=== PATIENT | male | born 1950 | race Caucasian/White ===

== ENCOUNTER 2016-04-11 08:51 | Emergency (ER) | payer BC, OTHER ==
[~2016-04-11] VITALS: Ht 162.6 cm; Wt 113.2 kg
[~2016-04-11 08:51] MED LIST: OXYC1TAB3 PO
[2016-04-11 08:59] VITALS: TEMP 36.7; Ht 162.6 cm; Wt 113.2 kg
--- NOTE | 2016-04-11 10:08 | DIAGNOSTIC IMAGING REPORT ---
CT OF THE HEAD WITHOUT CONTRAST CLINICAL HISTORY: Fall. COMPARISON STUDY: No previous studies for comparison. CT DOSE: 823.94 mGycm TECHNIQUE: Helical axial images of the head were obtained without IV contrast. Automated exposure control was utilized for the study. FINDINGS: No acute intracranial hemorrhage, midline shift or mass effect is present. Ventricular system is unremarkable for age. The basilar cisterns are patent. There are no extra-axial collections. Schaefer-white differentiation is maintained. There is a left posterior scalp contusion. No calvarial fracture is present. IMPRESSION: 1. No acute intracranial findings. 2. Left posterior scalp contusion. No calvarial fracture. Electronically signed by: Daniel Gramajo M.D. 04/11/2016 10:07 AM
--- NOTE | 2016-04-11 10:11 | DIAGNOSTIC IMAGING REPORT ---
CERVICAL SPINE CT CT DOSE: 446.00 mGycm HISTORY: Neck pain. Fall. EVALUATE FOR TRAUMA/INJURY TECHNIQUE: Multiaxial CT images of the cervical spine were performed and reformatted in the sagittal and coronal plane without the use of contrast. COMPARISON: None. FINDINGS: No fractures. No subluxation. Prevertebral soft tissues and the C1-C2 interval are intact. No pneumothorax. Focal indentation along the inferior endplate of C6 favors a Schmorl's node. Moderate disc space narrowing at C5-C6 and C6-C7. Mild to moderate facet degenerative changes seen throughout the cervical spine. IMPRESSION: No fractures within the cervical spine. Electronically signed by: Kishan Saini M.D. 04/11/2016 10:09 AM
--- NOTE | 2016-04-11 10:56 | DIAGNOSTIC IMAGING REPORT ---
LEFT ELBOW MIN 3 VIEWS ROUTINE CLINICAL HISTORY: Left elbow pain status post trauma COMPARISON: None. DISCUSSION: The fat pads are not displaced. No fractures or dislocations are visualized. There is a small radiopaque foreign body within the volar soft tissues. IMPRESSION: No fractures or dislocations identified. Small metallic foreign body within the volar soft tissues Electronically signed by: Jamaal Joseph M.D. 04/11/2016 10:54 AM
[2016-04-11 11:16] VITALS: BP 143/84; PULSE 69; O2SAT 98
--- NOTE | 2016-04-11 11:17 | EMERGENCY ROOM VISIT NOTE ---
History Report prepared by Christian: Lucero Collins Under the Supervision of: Dr. Thomas Lott D.O. 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 The patient states that he slipped on the ice outside of his house this morning. He hit the back of his head but did not experience LOC. Per the patient's , he kept asking repetitive questions after he fell. The patient is also experiencing neck pain that radiates into his jaw and pain in the back of his head. He denies hitting his jaw when he fell. The patient also hit his left elbow when he fell. He denies back pain along with any new tingling or numbness. He states that he has carpal tunnel in his hands. 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 A total of 10 systems reviewed and were otherwise negative. Past Medical & Surgical Medical Problems: (1) Carpal tunnel syndrome, bilateral Family History Cancer Diabetes mellitus Social History Smoking Status: Never Smoker Smokeless Tobacco Use: No Alcohol Use: none Drug Use: none Marital Status: Housing Status: lives with family Occupation Status: employed Current/Historical Medications No Active Prescriptions or Reported Meds Allergies Coded Allergies: No Known Allergies (Unverified , 04/11/16) Physical Exam Vital Signs Date Time Temp Pulse Resp B/P Pulse Ox O2 Delivery O2 Flow Rate FiO2 04/11/16 11:16 69 20 143/84 98 Room Air 04/11/16 08:59 36.7 72 20 183/98 97 Room Air Physical Exam CONSTITUTIONAL/VITAL SIGNS: Reviewed / noted above. GENERAL: Non-toxic in appearance. INTEGUMENTARY: Warm, dry, and Bond. HEAD: Normocephalic. Hematoma and abrasions on posterior occipital region. EYES: without scleral icterus or trauma. ENT/OROPHARYNX: clear and moist. LYMPHADENOPATHY/NECK: Is supple without lymphadenopathy or meningismus. Moderately tender to palpation of upper cervical midline. RESPIRATORY: Lungs clear and equal. CARDIOVASCULAR: Regular rate and rhythm. GI/ABDOMEN: Soft and nontender. No organomegaly or pulsatile mass. No rebound or guarding. Normal bowel sounds. EXTREMITIES: Warm and well perfused. BACK: No CVA tenderness. NEUROLOGICAL: Intact without focal deficits. GCS: 15 PSYCHIATRIC: normal affect. MUSCULOSKELETAL: Normally developed with good muscle tone. Medical Decision & Procedures ER Provider Diagnostic Interpretation: X ray results and stated below per my interpretation and radiologist interpretation. Other radiology results and stated below per my review and radiologist interpretation: LEFT ELBOW MIN 3 VIEWS ROUTINE CLINICAL HISTORY: Left elbow pain status post trauma COMPARISON: None. DISCUSSION: The fat pads are not displaced. No fractures or dislocations are visualized. There is a small radiopaque foreign body within the volar soft tissues. IMPRESSION: No fractures or dislocations identified. Small metallic foreign body within the volar soft tissue. Electronically signed by: Jamaal Joseph M.D. 04/11/2016 10:[address] OF THE HEAD WITHOUT CONTRAST CLINICAL HISTORY: Fall. COMPARISON STUDY: No previous studies for comparison. CT DOSE: 823.94 mGycm TECHNIQUE: Helical axial images of the head were obtained without IV contrast. Automated exposure control was utilized for the study. FINDINGS: No acute intracranial hemorrhage, midline shift or mass effect is present. Ventricular system is unremarkable for age. The basilar cisterns are patent. There are no extra-axial collections. Schaefer-white differentiation is maintained. There is a left posterior scalp contusion. No calvarial fracture is present. IMPRESSION: 1. No acute intracranial findings. 2. Left posterior scalp contusion. No calvarial fracture. Electronically signed by: Daniel Gramajo M.D. 04/11/2016 10:[address] DOSE: 446.00 mGycm HISTORY: Neck pain. Fall. EVALUATE FOR TRAUMA/INJURY TECHNIQUE: Multiaxial CT images of the cervical spine were performed and reformatted in the sagittal and coronal plane without the use of contrast. COMPARISON: None. FINDINGS: No fractures. No subluxation. Prevertebral soft tissues and the C1-C2 interval are intact. No pneumothorax. Focal indentation along the inferior endplate of C6 favors a Schmorl's node. Moderate disc space narrowing at C5-C6 and C6-C7. Mild to moderate facet degenerative changes seen throughout the cervical spine. IMPRESSION: No fractures within the cervical spine. Electronically signed by: Kishan Saini M.D. 04/11/2016 10:09 AM ED Course 0934: Previous medical records were reviewed. The patient was evaluated in room C9. A complete history and physical examination was performed. 1117: On reevaluation, the patient is doing well. I discussed the results and findings with the patient. He verbalized agreement of the treatment plan. He was discharged home. Medical Decision Differential includes close head injury, intracranial bleed, facial trauma, cervical spine trauma, chest and thoracic trauma, abdominal and intra-abdominal trauma, spine neurologic trauma, extremity trauma. This is a 65-year-old male who presents to the ED with a chief complaint of a fall. The patient states that he slipped and fell backwards string the back of his head. He complains of posterior head and neck pain. The patient was perseverating initially after the fall but this has improved. The patient's exam reveals a hematoma on the back of the head as well as some abrasions. His initial blood pressure was a little hypertensive. Exam reveals a posterior head hematoma with abrasions. He also has some tenderness to midline cervical spine. CT scan of the head and cervical spine were performed and no acute abnormality was noted. X-ray of the left elbow was performed as well for a small contusion and tenderness to the elbow. There was no fracture. The patient was told the results of the test. He is felt to be stable for discharge and outpatient follow-up. He did not require any pain medication. Impression Primary Impression: Fall Additional Impression: Concussion Scribe Attestation The scribe's documentation has been prepared under my direction and personally reviewed by me in its entirety. I confirm that the note above accurately reflects all work, treatment, procedures, and medical decision making performed by me. Departure Information Dispostion Home / Self-Care Prescriptions No Active Prescriptions or Reported Meds Referrals Gustavo Monsalve D.O. (PCP) Forms HOME CARE DOCUMENTATION FORM, IMPORTANT VISIT INFORMATION Patient Instructions A Signature Page, ED Concussion, My [facility] Additional Instructions Follow-up with your doctor for further care and evaluation in 1-2 days. Return to the emergency department for worsening or new symptoms or any concerns. You have been examined and treated today on an emergency basis only. This is not a substitute for, or an effort to provide, complete comprehensive medical care. It is impossible to recognize and treat all injuries or illnesses in a single emergency department visit. It is therefore important that you follow up closely with your doctor. Call as soon as possible for an appointment. Percocet as prescribed. No driving within 6 hours of use. Do not take additional Tylenol while taking Percocet. Zofran: Allow one tablet to dissolve under the tongue every 6 hours as needed for nausea or vomiting. Take Tylenol as needed for pain.
[2016-04-11] MEDS ORDERED: OXYC-57 PO (11:23)
[2016-04-11] MEDS ORDERED: ONDA4TAB10 SL (11:23)
== END 2016-04-11 11:34 | disposition home or self-care (01) ==
LOC: C.EDB 08:52 → C.EDC 11:34
DX: S06.0X0A Concussion without loss of consciousness, initial encounter (principal); S00.03XA Contusion of scalp, initial encounter; W00.0XXA Fall on same level due to ice and snow, initial encounter; Z83.3 Family history of diabetes mellitus